=== PATIENT | male | born 1950 | race Caucasian/White ===

== ENCOUNTER 2018-06-17 19:19 | Emergency (ER) | payer MEDICARE ==
[~2018-06-17] VITALS: Ht 172.7 cm; Wt 68.9 kg
[~2018-06-17 19:19] MED LIST: ACULAR 3 ML3 M1 OP; TOBREX OPHTH S2.5 ML OPH
== END 2018-06-17 20:27 | disposition home or self-care (01) ==
LOC: ED 19:19
DX: S01.112A Laceration without foreign body of left eyelid and periocular area, initial encounter (principal); W00.0XXA Fall on same level due to ice and snow, initial encounter; Y93.89 Activity, other specified; Y92.89 Other specified places as the place of occurrence of the external cause; Y99.8 Other external cause status

== ENCOUNTER 2020-08-24 10:36 | Emergency (ER) | payer MEDICARE ==
[~2020-08-24] VITALS: Ht 172.7 cm; Wt 71.2 kg
[2020-08-24] MEDS ORDERED: CEPHALEXIN500 M1 PO (12:52)
== END 2020-08-24 13:04 | disposition home or self-care (01) ==
LOC: ED 10:36
DX: L72.3 Sebaceous cyst (principal)

== ENCOUNTER 2022-11-24 09:33 | Emergency (ER) | payer MEDICARE ==
[~2022-11-24] VITALS: Ht 172.7 cm; Wt 72.6 kg
[~2022-11-24 09:33] MED LIST changes: +CEPHALEXIN500 M1 PO
[2022-11-24 10:16] LABS: BASO % 0.7 % (0.0-1.0); EOS # 0.1 10*3/uL (0.0-0.4); EOS % 2.2 % (1.0-4.0); LYMPH # 1.5 10*3/uL (1.3-4.4); LYMPH % 25.5 % (27.0-41.0); MEAN CELL VOLUME 88.2 fl (80.0-94.0); MEAN CORPUSCULAR HGB 29.5 pg (27.0-31.0); MEAN CORPUSCULAR HGB CONC 33.4 g/dl (33.0-37.0); MEAN PLATELET VOLUME 11.4 fl (9.6-12.3); MONO # 0.4 10*3/uL (0.1-1.0); MONO % 6.3 % (3.0-9.0); NEUT # 3.8 10*3/uL (2.3-7.9); NEUT % 64.8 % (47.0-73.0); PLATELET COUNT AUTOMATED 102 10*3/uL (130-400); RED BLOOD COUNT 4.65 10*6/uL (4.50-5.90); RED CELL DISTRI WIDTH 12.6 % (0-14.5); WHITE BLOOD COUNT 5.9 10*3/uL (4.8-10.8)
[2022-11-24 10:26] LABS: ACT PARTIAL THROMBO TIME 30.5 SECONDS (20.0-32.1); INTERNATIONAL NORM RATIO 1.2 (2.0-3.5)
[2022-11-24 10:28] LABS: BILIRUBIN Negative (Negative); BLOOD Trace-Lysed (Negative); CLARITY Clear (Clear); COLOR Yellow (Yellow); GLUCOSE Negative (Negative); KETONE Trace (Negative); LEUKO ESTERASE Negative (Negative); NITRITE Negative (Negative); SPECIFIC GRAVITY 1.025 (1.001-1.030)
[2022-11-24 10:38] LABS: ALKALINE PHOSPHATASE 93 U/L (46-116); BUN 15 mg/dl (9-23); CHLORIDE 103 mmol/L (98-107); LIPASE 27 U/L (12-53); POTASSIUM 4.3 mmol/L (3.4-5.1); SGPT/ALT 98 U/L (10-49)
[2022-11-24 10:42] LABS: BACTERIA 2+; EPITHELIAL CELLS 0-2; MUCOUS 1+
[2022-11-24] MEDS ORDERED: LEVOFLOXACIN750 M2 PO (10:44)
== END 2022-11-24 12:53 | disposition home or self-care (01) ==
LOC: ED 09:33
PROVIDERS: Emergency Medicine
DX: J18.9 Pneumonia, unspecified organism (principal); N39.0 Urinary tract infection, site not specified; Z20.822 Contact with and (suspected) exposure to COVID-19

== ENCOUNTER 2024-04-16 13:11 | Emergency (ER) | payer MEDICARE ==
[~2024-04-16] VITALS: Ht 172.7 cm; Wt 74.8 kg
[~2024-04-16 13:11] MED LIST changes: +LEVOFLOXACIN750 M2 PO
[2024-04-16] MEDS ORDERED: Ketorolac Tromethamine 15 MG/ML VIAL IV ONE (13:45)
[2024-04-16] MEDS ORDERED: SODIUM CHLORIDE 0.9% 1,000 ML IV ONE (13:45)
[2024-04-16] MEDS ORDERED: MORPHINE Sulfate 2 MG/ML SYR IV ONE (13:45)
[2024-04-16] MEDS ORDERED: Ondansetron Hydrochloride 4 MG/2 ML VIAL IV ONE (13:45)
[2024-04-16 13:52] LABS: BILIRUBIN Negative (Negative); BLOOD Negative (Negative); CLARITY Clear (Clear); COLOR Yellow (Yellow); GLUCOSE Negative (Negative); KETONE Negative (Negative); LEUKO ESTERASE Negative (Negative); NITRITE Negative (Negative); SPECIFIC GRAVITY 1.025 (1.001-1.030); UROBILINOGEN 0.2 E.U./dl (0.0-1.0)
[2024-04-16 13:59] LABS: BASO % 0.3 % (0.0-1.0); EOS # 0.1 10*3/uL (0.0-0.4); EOS % 0.7 % (1.0-4.0); MEAN CELL VOLUME 89.1 fl (80.0-94.0); MEAN CORPUSCULAR HGB 30.2 pg (27.0-31.0); MEAN CORPUSCULAR HGB CONC 33.9 g/dl (33.0-37.0); MEAN PLATELET VOLUME 11.7 fl (9.6-12.3); MONO # 1.2 10*3/uL (0.1-1.0); MONO % 12.8 % (3.0-9.0); NEUT # 6.3 10*3/uL (2.3-7.9); NEUT % 68.8 % (47.0-73.0); PLATELET COUNT AUTOMATED 141 10*3/uL (130-400); RED CELL DISTRI WIDTH 12.1 % (0-14.5); WHITE BLOOD COUNT 9.1 10*3/uL (4.8-10.8)
[2024-04-16 14:01] LABS: BACTERIA TRACE; EPITHELIAL CELLS 0-2; RBC 0-2 rbc/hpf (0-2)
[2024-04-16 14:15] LABS: POTASSIUM 3.6 mmol/L (3.4-5.1)
[2024-04-16] MEDS ORDERED: PERCOCET 5-3251 EACH PO (15:20)
[2024-04-16] MEDS ORDERED: Ondansetron4 MG PO (15:20)
[2024-04-16] MEDS ORDERED: FLOMAX0.4 MG PO (15:20)
== END 2024-04-16 15:23 | disposition home or self-care (01) ==
LOC: ED 13:11
PROVIDERS: Emergency Medicine
DX: N13.2 Hydronephrosis with renal and ureteral calculous obstruction (principal)